=== PATIENT | male | born 1950 | race Caucasian/White ===

== ENCOUNTER → 2017-10-16 | Outpatient (CLI) | payer MEDICARE ==
[~2017-10-16] MED LIST: ATOR20TA9 PO; LORA2TAB99 PO; VITAMIN D3 PO; VITAMIN E PO; [UNRECOGNIZED DRUG - OTHER] PO
[2017-10-16 11:57] LABS: BASOPHILS # (AUTO) 0.04 x10^3/uL (0-0.1); BASOPHILS % (AUTO) 1 % (0-1); EOSINOPHILS # (AUTO) 0.17 x10^3/uL (0-0.4); EOSINOPHILS % (AUTO) 3 % (1-7); LYMPHOCYTES # (AUTO) 1.56 x10^3/uL (1-3.4); LYMPHOCYTES % (AUTO) 23 % (22-44); MD NO; MEAN CORPUSCULAR HEMOGLOBIN 33.5 pg (27.5-34.5); MEAN CORPUSCULAR HGB CONC 33.7 g/dL (33.2-36.2); MEAN CORPUSCULAR VOLUME 99.4 fL (81-97); MEAN PLATELET VOLUME 8.1 fL (7.4-10.4); MONOCYTES # (AUTO) 0.47 x10^3/uL (0.2-0.8); MONOCYTES % (AUTO) 7 % (2-9); NEUTROPHILS # (AUTO) 4.43 x10^3/uL (1.8-6.8); NEUTROPHILS % (AUTO) 66 % (42-75); PLATELET COUNT 245 x10^3/uL (130-400); RED BLOOD COUNT 4.69 x10^6/uL (4.38-5.82); RED CELL DISTRIBUTION WIDTH 13.9 % (9.4-14.8)
[2017-10-16 12:06] LABS: INTERNATIONAL NORMALIZED RATIO 1.06 (0.93-1.1); PROTHROMBIN TIME 10.9 Seconds (9.6-11.5)
[2017-10-16 12:07] LABS: ANION GAP 4 mmol/L (5-15); CALCIUM 8.6 mg/dL (8.5-10.1); CHLORIDE 107 mmol/L (98-107); CREATININE 0.94 mg/dL (0.7-1.3)
== END | disposition home or self-care (01) ==
LOC: STAR 10:25
PROVIDERS: ATTEND Neurological Surgery
DX: Z01.818 Encounter for other preprocedural examination (principal); G20 Parkinson's disease
CPT/HCPCS: 36415; 71046; 80048; 85025; 85610; 85730; 93005

== ENCOUNTER 2017-10-24 11:46 | Day surgery (SDC) | payer MEDICARE ==
[~2017-10-24] VITALS: Ht 172.7 cm; Wt 72.9 kg
[~2017-10-24 11:46] MED LIST changes: +ONDANSETRON 2MG/ML, 2ML ONE; +PROPOFOL 10 MG/ML, 20ML ONE
[2017-10-24] MEDS ORDERED: LACTATED RINGERS 1,000 ML IV SCH (12:24)
[2017-10-24] MEDS ORDERED: [UNRECOGNIZED DRUG - OTHER] PO (12:27)
[2017-10-24] MEDS ORDERED: LIDOCAINE 1%, 2ML SQ PRN (12:30)
[2017-10-24 12:31] VITALS: BP 110/69
[2017-10-24] MEDS ORDERED: GADOBUTROL 10 MMOL/10 ML PFS ONE (14:33)
[2017-10-24] MEDS ORDERED: FENTANYL PF 100 MCG/2ML IV PRN (15:00)
[2017-10-24] MEDS ORDERED: MIDAZOLAM 1 MG/ML, 2ML IV PRN (15:00)
[2017-10-24] MEDS ORDERED: ACETAMINOPHEN 325 MG TABLET PO PRN (15:00)
[2017-10-24] MEDS ORDERED: ONDANSETRON 2MG/ML, 2ML IVPush PRN (15:00)
== END 2017-10-24 16:10 ==
LOC: OUT 11:46 → EDSTATUS 13:00 → OUT 16:10
PROVIDERS: ATTEND Neurological Surgery
DX: G20 Parkinson's disease (principal); J32.9 Chronic sinusitis, unspecified
CPT/HCPCS: 70553; A9585; J2405; J2704

== ENCOUNTER 2017-10-26 05:55 | Observation (INO) | payer MEDICARE ==
[~2017-10-26] VITALS: Ht 172.7 cm; Wt 79.5 kg
[~2017-10-26 05:55] MED LIST changes: -ONDANSETRON 2MG/ML, 2ML ONE; -PROPOFOL 10 MG/ML, 20ML ONE; +[UNRECOGNIZED DRUG - OTHER] PO
[2017-10-26] MEDS ORDERED: BUPIVACAINE/PF 0.5% ONE (06:49)
[2017-10-26] MEDS ORDERED: THROMBIN 5,000 UNIT VIAL TP ONE (06:50)
[2017-10-26] MEDS ORDERED: EPINEPHRINE 1 MG/ML, 1ML ONE (06:50)
[2017-10-26] MEDS ORDERED: BACITRACIN OINT 500U/GM, 15 GM ONE (06:50)
[2017-10-26] MEDS ORDERED: BACITRACIN 50,000 UNIT ONE (06:50)
[2017-10-26] MEDS ORDERED: LIDOCAINE/MPF 2%-EPI 1:200K, 20 ML ONE (06:50)
[2017-10-26] MEDS ORDERED: LACTATED RINGERS 1,000 ML IV SCH (07:04)
[2017-10-26] MEDS ORDERED: NITROPRUSSIDE 25 MG/ML, 2ML ONE (07:04)
[2017-10-26] MEDS ORDERED: NITROGLYCERIN 5 MG/ML, 10ML ONE ×2 (07:05→08:52)
[2017-10-26 07:08] VITALS: BP 133/80
[2017-10-26] MEDS ORDERED: SODIUM BICARBONATE 1 MEQ/ML, 50ML VIAL ONE (07:16)
[2017-10-26] MEDS ORDERED: CEFUROXIME 1.5 GM ONE ×2 (07:16→14:18)
[2017-10-26] MEDS ORDERED: MINERAL OIL 10 ML VIAL MC ONE (07:16)
[2017-10-26] MEDS ORDERED: DEXMEDETOMIDINE 200 MCG/2 ML ONE (08:42)
[2017-10-26] MEDS ORDERED: PROPOFOL 10 MG/ML, 20ML ONE (08:52)
[2017-10-26] MEDS ORDERED: ESMOLOL 100 MG/10 ML ONE (08:52)
[2017-10-26] MEDS ORDERED: LIDOCAINE 2%-EPI 1:100K, 20ML INFIL ONE (12:07)
[2017-10-26] MEDS ORDERED: BUPIVACAINE/PF 0.5% INFIL ONE (12:09)
[2017-10-26] MEDS: FENTANYL PF 100 MCG/2ML IV PRN ×2 (14:45→14:55)
[2017-10-26] MEDS ORDERED: HYDROcodone/APAP 7.5-325MG/15ML UDC PO PRN (15:30)
[2017-10-26] MEDS ORDERED: OXYcodone 5 MG/5 ML ORAL.SOL UDC PO PRN (15:30)
[2017-10-26] MEDS ORDERED: HYDROmorphone 1 MG/ML, 1ML IV PRN (15:30)
[2017-10-26] MEDS ORDERED: ONDANSETRON 2MG/ML, 2ML IVPush PRN (15:30)
[2017-10-26] MEDS ORDERED: hydrALAzine 20 MG/ML, 1ML IV PRN (15:30)
[2017-10-26] MEDS ORDERED: [UNRECOGNIZED DRUG - OTHER] PO SCH (15:30)
[2017-10-26] MEDS ORDERED: CEFAZOLIN 1,000 MG IM SCH (15:30)
[2017-10-26] MEDS ORDERED: ACETAMINOPHEN 325 MG TABLET PO PRN (15:30)
[2017-10-26] MEDS ORDERED: LABETALOL 5MG/ML, 20ML IV PRN (15:30)
[2017-10-26] MEDS ORDERED: CARBIDOPA/LEVODOPA 25 MG/100 MG TABLET PO PRN (16:00)
[2017-10-26] MEDS ORDERED: LORazepam 2 MG/ML, 1ML IVPush PRN (16:00)
[2017-10-26] MEDS: CEFAZOLIN PMX 1GM/50ML 50 ML IV SCH ×2 (17:06→23:24)
[2017-10-26] MEDS: D5%-0.9% NACL+KCL 20MEQ 1,000 ML IV SCH (17:06)
[2017-10-26] MEDS ORDERED: CARBIDOPA/LEVODOPA CR 25 MG/100 MG TABLET PO SCH (21:00)
[2017-10-26] MEDS ORDERED: ATORVASTATIN 20 MG TABLET PO SCH (21:00)
[2017-10-26] MEDS ORDERED: MELATONIN 5 MG TABLET PO SCH (21:00)
[2017-10-26] MEDS: OXYcodone/APAP 5/325MG TABLET PO PRN (23:23)
[2017-10-27] MEDS: D5%-0.9% NACL+KCL 20MEQ 1,000 ML IV SCH ×2 (04:16→11:30)
[2017-10-27 05:59] VITALS: BP 110/58
[2017-10-27] MEDS: CEFAZOLIN PMX 1GM/50ML 50 ML IV SCH (08:56)
[2017-10-27] MEDS ORDERED: VITAMIN E 400 UNITS CAPSULE PO SCH (09:00)
[2017-10-27] MEDS ORDERED: CHOLECALCIFEROL 400 UNITS TABLET PO SCH (09:00)
[2017-10-27] MEDS ORDERED: VITAMIN D3 PO SCH (09:00)
[2017-10-27] MEDS ORDERED: [UNRECOGNIZED DRUG - OTHER] PO SCH (09:00)
[2017-10-27] MEDS: OXYcodone/APAP 5/325MG TABLET PO PRN (10:57)
[2017-10-27] MEDS ORDERED: OXYC-302 PO (15:38)
== END 2017-10-27 15:49 | disposition home or self-care (01) ==
LOC: INTOOBSV 05:55 → ORIP 05:55 → CCU 15:28 → DCLOUNGE 10-27 15:39
PROVIDERS: ADMIT Neurological Surgery; ATTEND Neurological Surgery
DX: G20 Parkinson's disease (principal); I10 Essential (primary) hypertension; E78.00 Pure hypercholesterolemia, unspecified; M19.90 Unspecified osteoarthritis, unspecified site
CPT/HCPCS: 36415; 61867; 70450; 86850; 86900; 87081; 96365; 96375; 97161; 97166; 97530; G0378; G8978; G8979; G8980; J0690; J0697; J2060; J2704; J3010; J3480; J3490; J7120; J0171

== ENCOUNTER 2017-11-08 06:36 | Day surgery (SDC) | payer MEDICARE ==
[~2017-11-08] VITALS: Ht 172.7 cm; Wt 77.1 kg
[~2017-11-08 06:36] MED LIST changes: +OXYC-302 PO
[2017-11-08] MEDS ORDERED: EPINEPHRINE 1 MG/ML, 1ML ONE (06:52)
[2017-11-08] MEDS ORDERED: BACITRACIN OINT 500U/GM, 15 GM ONE (06:52)
[2017-11-08] MEDS ORDERED: BACITRACIN 50,000 UNIT ONE (06:52)
[2017-11-08] MEDS ORDERED: THROMBIN 5,000 UNIT VIAL TP ONE (06:52)
[2017-11-08] MEDS ORDERED: BUPIVACAINE/PF 0.5% ONE (06:52)
[2017-11-08] MEDS ORDERED: LACTATED RINGERS 1,000 ML IV SCH (07:36)
[2017-11-08 08:00] VITALS: BP 139/80
[2017-11-08] MEDS ORDERED: CARB1TAB2 PO (08:00)
[2017-11-08] MEDS ORDERED: CARBIDOPA/LEVODOPA 25 MG/100 MG TABLET PO ONE ×4 (08:30→16:45)
[2017-11-08] MEDS ORDERED: FENTANYL PF 100 MCG/2ML ONE ×2 (09:22→13:26)
[2017-11-08] MEDS ORDERED: MIDAZOLAM 1 MG/ML, 2ML ONE ×2 (09:22→13:25)
[2017-11-08] MEDS ORDERED: PROPOFOL 10 MG/ML, 20ML ONE (11:00)
[2017-11-08] MEDS ORDERED: DEXAMETHASONE 4 MG/ML, 1ML ONE (11:00)
[2017-11-08] MEDS ORDERED: CEFAZOLIN 1,000 MG ONE (11:00)
[2017-11-08] MEDS ORDERED: ONDANSETRON 2MG/ML, 2ML ONE (11:00)
[2017-11-08] MEDS ORDERED: KETOROLAC 30 MG/1 ML ONE (11:00)
[2017-11-08] MEDS ORDERED: PROMETHAZINE 12.5 MG SUPP PR PRN (12:30)
[2017-11-08] MEDS ORDERED: ONDANSETRON 2MG/ML, 2ML IVPush PRN (12:30)
[2017-11-08] MEDS ORDERED: MEPERIDINE/PF 25MG/0.5ML IVPush PRN (12:30)
[2017-11-08] MEDS ORDERED: PROMETHAZINE 25 MG/ML, 1ML IV PRN (12:30)
[2017-11-08] MEDS ORDERED: ALBUTEROL SULFATE 2.5 MG/3 ML NPPB PRN (12:30)
[2017-11-08] MEDS ORDERED: METOPROLOL 1 MG/ML, 5ML IV PRN (12:30)
[2017-11-08] MEDS ORDERED: HYDROcodone/APAP 7.5-325MG/15ML UDC PO PRN (12:30)
[2017-11-08] MEDS ORDERED: DIAZEPAM 5 MG/ML, 2ML IVPush PRN (12:30)
[2017-11-08] MEDS ORDERED: ACETAMINOPHEN 325 MG TABLET PO PRN (12:30)
[2017-11-08] MEDS ORDERED: OXYcodone 5 MG/5 ML ORAL.SOL UDC PO PRN (12:30)
[2017-11-08] MEDS ORDERED: hydrALAzine 20 MG/ML, 1ML IV PRN (12:30)
[2017-11-08] MEDS ORDERED: EPHEDRINE 50 MG/ML, 1ML IVPush PRN (12:30)
[2017-11-08] MEDS ORDERED: morphine SULFATE 10 MG/ML, 1ML IV PRN (12:30)
[2017-11-08] MEDS ORDERED: LABETALOL 5MG/ML, 20ML IV PRN (12:30)
[2017-11-08] MEDS ORDERED: ACETAMINOPHEN 650 MG/20.3 ML UDC ONE (12:56)
[2017-11-08] MEDS ORDERED: OXYcodone 5 MG/5 ML ORAL.SOL UDC ONE ×2 (12:56→13:46)
[2017-11-08] MEDS: FENTANYL PF 100 MCG/2ML IV PRN ×2 (13:29→13:49)
[2017-11-08] MEDS: MIDAZOLAM 1 MG/ML, 2ML IV PRN ×2 (13:29→13:49)
== END 2017-11-08 15:55 | disposition home or self-care (01) ==
LOC: OUT 06:36
PROVIDERS: ATTEND Neurological Surgery
DX: G20 Parkinson's disease (principal); I10 Essential (primary) hypertension; E78.00 Pure hypercholesterolemia, unspecified; M19.90 Unspecified osteoarthritis, unspecified site; Z79.899 Other long term (current) drug therapy
CPT/HCPCS: 61886; C1767; C1787; C1883; J0171; J0690; J1100; J1885; J2250; J2405; J2704; J3010; J3490; J7120; L8681